=== PATIENT | female | born 1980 | race Caucasian/White ===

== ENCOUNTER 2018-08-17 03:15 | Emergency (ER) | payer OTHER ==
[~2018-08-17] VITALS: Ht 160 cm; Wt 95.3 kg
[~2018-08-17 03:15] MED LIST: APAP W/CODEINE1 TA2 PO; EXCEDRIN SINUS1 EAC2; FLEXERIL PO; FLONASE 0.05%50 MCG NASAL; KEFLEX500 MG PO; MEDROLDOSEPACK PO; NAPROSYN500 MG PO; NORCO 5-325 TA1 EACH PO; ONDANSETRON HCL4 M3 PO; PRENATAL; TRAMADOL 50 MG50 MG PO; ULTRAM50 MG PO
[2018-08-17] MEDS ORDERED: IBUPROFEN 600600 M1 PO (03:22)
[2018-08-17 04:06] VITALS: BP 153/74
== END 2018-08-17 04:04 | disposition home or self-care (01) ==
LOC: M.ERS 03:15
DX: G43.909 Migraine, unspecified, not intractable, without status migrainosus (principal); R11.10 Vomiting, unspecified; F17.210 Nicotine dependence, cigarettes, uncomplicated; Z91.041 Radiographic dye allergy status